=== PATIENT | female | born 1975 | race Caucasian/White ===

== ENCOUNTER 2016-09-19 07:55 | Emergency (ER) | payer SELFPAY ==
--- NOTE | 2016-09-19 11:34 | ED ORDER SUMMARY ---
..... Patient: JAXON RODRIGUEZ OrderSheet [facility] VisitID: [id number] [place] [address] 41y, F Registration Date/Time: 09/19/2016 ORDER SHEET Weight: 56.6 kg (stated) Allergies: Cyclobenzaprine, Reglan GENERAL ORDERS: CBC w Diff Urgent (08:12 09/19/2016 JBoardley R.N. per protocol) (Ack 8:20 LTapper) (8:44 JBoardley R.N.) CMP Urgent (08:09/19/2016 JBoardley R.N. per protocol) (Ack 8:20 LTapper) (8:44 JBoardley R.N.) Rapid Influenza Screen (Nasal Pharyngeal) (nasal) Urgent (08:15 09/19/2016 JBoardley R.N. per protocol) (Ack 8:20 LTapper) (8:20 JBoardley R.N.) Urine Drug Screen Urgent (09:30 09/19/2016 PHutchinson DO) (Ack 9:38 LTapper) (9:44 RKaruga) UA-Culture if indicated Urgent (09:09/19/2016 PHutchinson DO) (Ack 9:38 LTapper) (9:44 RKaruga) Urine Urgent (09:09/19/2016 PHutchinson DO) (Ack 9:38 LTapper) (9:44 RKaruga) Amylase Urgent (09:57 09/19/2016 PHutchinson DO) (Ack 9:59 LTapper) (10:30 JBoardley R.N.) Lipase Urgent (09:57 09/19/2016 PHutchinson DO) (Ack 9:59 LTapper) (10:30 JBoardley R.N.) MEDICATION ORDERS: Phenergan IV 12.5 mg (NOW) (09:58 09/19/2016 PHutchinson DO) (Ack 9:59 JBoardley R.N.) (10:07 JBoardley R.N.) IV FLUIDS: IV NS : initial bolus none -, then 1000 mL/hr for X2 (NOW) (08:11 09/19/2016 JBoardley R.N. per protocol) (Ack 8:12 JBoardley R.N.) (8:20 JBoardley R.N.) Zofran IV 4 mg (NOW) (08:11 09/19/2016 JBoardley R.N. per protocol) (Ack 8:12 JBoardley R.N.) (8:20 JBoardley R.N.) Benadryl IV 25 mg (NOW) (08:35 09/19/2016 Frank ESCOTO) (Ack 8:38 JBoardley R.N.) (8:42 JBoardley R.N.) Haldol IV 4 mg (NOW) (08:35 09/19/2016 Frank ESCOTO) (Ack 8:38 JBoardley R.N.) (8:42 JBoardley R.N.) Zofran IV 4 mg (NOW) (09:58 09/19/2016 [facility]) (Ack 9:59 JBoardley R.N.) (10:07 JBoardley R.N.) Protonix IVP 40mg 40 mg (Mix in NS 10ml over 2min) (09:58 09/19/2016 [facility]) (Ack 9:59 JBoardley R.N.) (10:08 JBoardley R.N.) Dilaudid IV 1 mg (HIGH ALERT MEDICATION, NOW) (10:43 09/19/2016 [facility]) (Ack 10:43 JBoardley R.N.) (10:51 JBoardley R.N.) Benadryl IV 25 mg (NOW) (10:43 09/19/2016 [facility]) (Ack 10:43 JBoardley R.N.) (10:52 JBoardley R.N.) ORDER SHEET NOTES: [Electronically signed by Sanchez Farley R.N. (12:48 09/19/2016)] [Electronically signed by Dharmesh Lamb DO (23:09 09/19/2016)] [Electronically locked/signed by Sanchez Farley R.N. (12:48 09/19/2016)]
--- NOTE | 2016-09-19 11:34 | ED CLINICAL REPORT ---
Clinical Report - Physicians/Mid Levels [facility] [address] [place] [address] 09/19/2016 7:57 Patient: JAXON RODRIGUEZ Time Seen: 08:29 Sep 19 2016. Arrived- By private vehicle. Historian- patient. HISTORY OF PRESENT ILLNESS Chief Complaint: VOMITING and DIARRHEA. This started yesterday and is still present. It was gradual in onset and has been waxing/waning. No recent travel. She has had nausea, vomiting and mild abdominal pain. The pain is described as located in the central area of the abdomen. No diarrhea, black stools, bloody stools, history of possible bad food exposure or known contact with a sick individual. Has not recently been camping or on antibiotics. The illness is described as moderate. Similar symptoms previously: Several times, as bad. Diagnosis: (Cyclic vomiting). Recent medical care: Not recently seen/assessed. REVIEW OF SYSTEMS No fever, difficulty with urination, dark urine, dizziness or cough. No chest pain, difficulty breathing, excessive urination or skin rash. All systems otherwise negative, except as recorded above. PAST HISTORY PCP: Nick Richmond Gastroparesis. Abnormal Test. Abdominal Pain. Vomiting. Chronic Back Pain. Gastroenteritis. Cyclical vomiting syndrome. SURGERIES: EGD. SOCIAL HISTORY Smoker- current status unknown. No alcohol use or drug use. ADDITIONAL NOTES The nursing notes have been reviewed. PHYSICAL EXAM Vital Signs: 09/19/2016 08:05 BP: 137/86. HR: 68. RR: 18. O2 saturation: 100%. Temp: 98.5 F. Pain level now: 7/10. Appearance: Alert. Patient in mild distress. Eyes: Eyes normal inspection. ENT: Pharynx normal. Neck: Normal inspection. CVS: Normal heart rate and rhythm. Heart sounds normal. Pulses normal. Respiratory: No respiratory distress. Breath sounds normal. Abdomen: Soft. Mild tenderness in the periumbilical area. Abnormal bowel sounds: diminished. No rebound tenderness or guarding. Back: Normal inspection. Skin: Normal skin color. No rash. Extremities: Extremities exhibit normal ROM. Neuro: Oriented X 3. LABS, X-RAYS, AND EKG Laboratory Tests: UA-Culture if indicated: (KRYS: 09/19/2016 09:40) ( [facility] 09/19[facility]2016 10:07) Final results Test Result Flag Units (Reference) URINE COLOR YELLOW URINE APPEARANCE CLEAR URINE GLUCOSE NEGATIVE (NEGATIVE) URINE BILIRUBIN NEGATIVE (NEGATIVE) URINE KETONE 1+ (NEGATIVE) URINE SPECIFIC GRAVITY 1.015 (1.010-1.030) URINE PH 8.0 (5.0-8.0) URINE PROTEIN TRACE (NEGATIVE) URINE UROBILINOGEN 0.2 EU/dL (0.2-1.0) URINE NITRITE NEGATIVE (NEGATIVE) URINE BLOOD NEGATIVE (NEGATIVE) URINE LEUK ESTERASE NEGATIVE (NEGATIVE) URINE RBC 0-1 rbc/hpf (0-1) URINE WBC 0-1 wbc/hpf (0-1) URINE EPITHELIAL CELLS 1-3 EPI/hpf (0-5) URINE BACTERIA NONE SEEN (NONE SEEN) URINE COMMENT CULT NOT INDICATED 1+ MUCOUSURINE CULTURES ARE SET-UP BASED ON THE FOLLOWING CRITERIA:POSITIVE NITRITEPOSITIVE LEUKOCYTE ESTERASEGREATER THAN 10 WHITE BLOOD CELLSMODERATE (2+) OR GREATER BACTERIA Urine: (KRYS: 09/19/2016 09:40) ( [facility] [place] 09/19/2016 09:55) Final results Test Result Flag Units (Reference) URINE NEGATIVE CBC w Diff: (KRYS: 09/19/2016 08:44) ( [facility] 09/19/2016 08:56) Final results Test Result Flag Units (Reference) WHITE BLOOD COUNT 11.8 H K/uL (4.5-11.5) RED BLOOD COUNT 4.35 M/uL (4.00-5.20) HEMOGLOBIN 13.5 gm/dL (12.0-16.0) HEMATOCRIT 40.9 % (36.0-46.0) MEAN CELL VOLUME 94 fL (80-100) MEAN CORPUSCULAR HGB 31 pg (26-34) MEAN CORPUSCULAR HGB CONC 33 g/dL (31-37) RED CELL DISTRIBUTION WIDTH 13.1 % (11.6-14.8) PLATELET COUNT 272 K/uL (150-400) NEUTROPHIL % 92.6 H % (50-75) LYMPH % 6.6 L % (25-40) MONO % 0.7 L % (3-14) EOSINOPHIL % 0 % (0-4) BASOPHIL % 0.1 % (0-2) Lipase: (KRYS: 09/19/2016 08:44) ( [facility] 09/19/2016 10:10) Final results Test Result Flag Units (Reference) LIPASE 60 L U/L (73-393) AMYLASE 43 U/L (25-115) Urine Drug Screen: (KRYS: 09/19/2016 09:40) ( [facility] 09/19/2016 10:09) Final results Test Result Flag Units (Reference) AMPHETAMINE/METHAMPHETAMINE NEGATIVE (NEGATIVE) BARBITURATE NEGATIVE (NEGATIVE) BENZODIAZEPINE NEGATIVE (NEGATIVE) CANNABINOID NEGATIVE (NEGATIVE) COCAINE NEGATIVE (NEGATIVE) ECSTASY NEGATIVE (NEGATIVE) METHADONE NEGATIVE (NEGATIVE) OPIATE NEGATIVE (NEGATIVE) The urine drug screen is a qualitative screening test fordrug overdose and abuse. All screen results should beconsidered as presumptive.Drugs screened for are as follows:BenzodiazepinesCocaineAmphetamines/MetamphetaminesTHC (Tetrahydrocannabinol)OpiatesBarbituratesEcstasyMethadonePositive results are unconfirmed. For confirmation, notifythe lab for the specimen to be sent to the reference lab.All confirmations must be performed by a differentmethodology.The ingestion of natural herbal and plant productscontaining Ephedra/Ephedra metabolites can produce in urineone or more substances capable of cross reacting withamphetamine/methamphetamine immunoassays. These testsprovide a preliminary result only. A more specificalternative chemical method must be used to obtain aconfirmed analytical result. CMP: (KRYS: 09/19/2016 08:44) ( [facility] 09/19/2016 09:17) Final results Test Result Flag Units (Reference) GLUCOSE 158 H mg/dL (70-110) BUN 4 L mg/dL (7-18) CREATININE 0.0 L mg/dL (0.6-1.3) Estimated GFR >60 mL/min Estimated GFR- >60 mL/min Note: Persistent reduction over 3 months in eGFR<60 mL/min/1.73 m2 defines CKD. Patients with eGFR values>=60 mL/min/1.73 m2 may also have CKD if evidence ofpersistent proteinuria. Additional information may be foundat www.[email or web address].org. SODIUM 138 mmol/L (136-145) POTASSIUM 3.6 mmol/L (3.5-5.1) CHLORIDE 101 mmol/L (98-107) CARBON DIOXIDE 25 mmol/L (21-32) CALCIUM 8.4 L mg/dL (8.5-10.1) TOTAL PROTEIN 7.7 g/dL (6.4-8.2) ALBUMIN 3.9 g/dL (3.3-5.0) BILIRUBIN, TOTAL 0.3 mg/dL (0.0-1.0) ALKALINE PHOSPHATASE 81 U/L (46-116) AST (SGOT) 14 L U/L (15-37) ALT (SGPT) 22 U/L (12-78) Rapid Influenza Screen: (KRYS: 09/19/2016 08:20) ( [facility] 09/19/2016 08:50) Final results SPECIMEN DESCRIPTION: NASAL Test Result Flag Units (Reference) RAPID INFLUENZA SCREEN DATE: 09/19/16 INFLUENZA A: NEGATIVE SCREEN FOR INFLUENZA A INFLUENZA B: NEGATIVE SCREEN FOR INFLUENZA B . Pulse Oximetry: 09/19/2016 08:05 O2 saturation: 100%. (FIO2 - room air). Interpretation: normal. PROGRESS AND PROCEDURES Course of Care: IV 2 L NS Benadryl 25 mg + 25 mg IV Haldol 4 mg IV Zofran 4 mg + 4mg IV Phenergan 12.5 mg IV Dilaudid 1 mg IV 09:00. Care transferred from Dr Mcclendon to myself secondary to change of shift Mild leukocytosis c/w demargination/ stress reaction from vomiting We were able to make an appt for her with her pcp for 2 days, but she refused this appt. We then rescheduled with a new provider for Alon Patient is stable. Physical exam findings are improved. Symptoms much better. Patient/family counseled. Old ED records reviewed. CLINICAL IMPRESSION Intractable vomiting with nausea (with history of cyclic vomiting syndrome). Acute generalized and epigastric abdominal pain of undetermined cause. INSTRUCTIONS Do not work for three days. Drink plenty of fluids. No alcohol until released. Avoid alcohol and NSAIDS. Examples of NSAIDS include aspirin, ibuprofen (Advil) and naproxen (Aleve). Avoid fatty, fried/greasy, lactose-containing (such as milk, cheese and ice cream), salty and spicy foods. Drink plenty of fluids. Do not smoke. Seek medical help to quit smoking. Warnings: Further evaluation is necessary in order to recheck abnormal lab, obtain test results, conduct further tests and assess the possibility of serious illness. It is very important to follow up with a physician. SEDATIVE MEDICATION: You were given sedative medication during your visit. Do not drive or operate dangerous machinery. CONTROLLED SUBSTANCE WARNINGS. GENERAL WARNINGS: Return or contact your physician immediately if your condition worsens or changes unexpectedly, if not improving as expected, or if other problems arise. Your Current Medications: CONTINUE TAKING THE FOLLOWING MEDICATIONS: Amitriptyline HCl Oral : 125 mg at bedtime. Prescription Medications: Hydrocodone/APAP 5mg / 325mg: take 1-2 orally every 8 hours as needed for pain. Dispense fifteen (15). No refill. Zofran (orally disintegrating tablets) 4 mg: take 1-2 orally every 8 hours as needed for nausea and vomiting. Dispense fifteen (15). No refill. Substitution is permissible. Prevacid 30 mg capsules: Take 1 capsule orally once daily. Dispense fifteen (15). No refills. Substitution is permissible. Phenergan suppositories 25 mg: Insert 1 rectally every 4 to 6 hours as needed for nausea or vomiting. Dispense ten (10). No refills. Substitution is permissible. OTC Medications: Take acetaminophen (Tylenol, Datril, etc.) according to label instructions. Available over the counter. Follow-up: Follow up with your doctor Haven at the [facility] - an appointment has been made for you for 9:40 am Monday as scheduled. (Electronically signed by Dharmesh Lamb DO 09/19/2016 23:09)
--- NOTE | 2016-09-19 11:34 | ED NURSING NOTES ---
Clinical Report - Nurses [facility] [address] [place] [address] 09/19/2016 7:57 Patient: JAXON RODRIGUEZ TRIAGE Triage time 08:05. Acuity: LEVEL 3. Chief Complaint: ABDOMINAL PAIN, NAUSEA and VOMITING. 08:06 09/19/16. 08:06 09/19/16. Alert. --08:09 Sanchez Farley R.N. 08:05 09/19/16. BP: 137/86. HR: 68. RR: 18. O2 saturation: 100% on room air. Temp: 98.5 F (oral). Pain level now: 02/13. --08:09 Sanchez Farley R.N. Weight: 56.6 kg stated. Height/Length: 64 inches Per Patient. BMI: 21.4. --08:05 Sanchez Farley R.N. Medications Amitriptyline HCl Oral 125 mg, at bedtime. --08:07 Sanchez Farley R.N. Medication/allergy information source: the patient. --08:09 Sanchez Farley R.N. Allergies Cyclobenzaprine. Reglan. --08:08 Sanchez Farley R.N. History Arrived by private vehicle. Historian: patient. Accompanied by friend. Primary physician ([facility] [place]). 08:06 09/19/16. This started yesterday. 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 PAST MEDICAL HX: Last normal menstrual period- Ended "a few days ago". Immunizations not up to date. SOCIAL HX: Current every day light tobacco smoker (cigarette)- less than 1/2 a pack per day. No alcohol use or drug use. No recent travel. She has had contact with a sick individual. ABUSE ASSESSMENT: No report of abuse. FALL RISK ASSESSMENT: Fall risk assessment completed. No fall risk identified. NUTRITIONAL RISK ASSESSMENT: The nutritional risk assessment revealed no deficiencies. FUNCTIONAL ASSESSMENT: Functional assessment: no impairments noted. LEARNING NEEDS ASSESSMENT: The learning needs assessment revealed no barriers. SKIN INTEGRITY ASSESSMENT: Skin integrity risk assessment completed. No skin integrity risk identified. --08:09 Sanchez Farley R.N. PROBLEMS: Gastroparesis. Abnormal Test. Abdominal Pain. Vomiting. Chronic Back Pain. Gastroenteritis. Cyclical vomiting syndrome. --08:08 Sanchez Farley R.N. ADDITIONAL SURGERIES: EGD. --08:08 Sanchez Farley R.N. Assessment 08:06 09/19/16. --08:09 Sanchez Farley R.N. Interventions 08:09/19/16. 08:09/19/16. ID and allergy band on patient. To treatment room. --08:09 Sanchez Farley R.N. PHYSICAL ASSESSMENT 08:09/19/16. Ambulatory to room. GENERAL / NEURO / PSYCH: Appears in pain. RESPIRATORY: Respirations not labored. CVS: Capillary refill less than 2 seconds. GI / : Last BM was Loose was yesterday. ( Last time emesis: 30 min ago). SKIN: Skin is warm and dry. --08:10 Sanchez Farley R.N. NURSING PROGRESS NOTES 08:09/19/16. The plan of care for this patient has been created. Patient gowned. Head of bed elevated. Reassurance given. Two patient identifiers checked. Call light placed in reach. Side rails up x 2. Bed placed in lowest position. Brakes of bed on. Brakes of chair on. --08:10 Sanchez Farley R.N. 08:10 09/19/16. Patient ready for evaluation- chart flagged and notification provided. --08:10 Sanchez Farley R.N. 08:15 09/19/2016 Site #1 started via IV in the right hand with an 20g angiocath; one attempt. Saline lock flushed with 10 mL saline (Sluggish blood draw, lab to draw labs Started by Christie LAINEZ). --08:20 Sanchez Farley R.N. 08:20 09/19/2016 Started bag #1 1000 mL IV Fluids IV NS (Saline); at 1000 mL/hr over 1 hour(s) via site #1. Allergies verified and confirmed 5 rights. IV patency established. IV site checked: no pain, redness, or swelling. IV flushed thoroughly pre- and post-medication administration. Completed per protocol. --08:20 Sanchez Farley R.N. 08:20 09/19/2016 Zofran (Ondansetron HCl) IVP 4 mg given over 2 minute(s) via site #1. Allergies verified and confirmed 5 rights. IV patency established. IV site checked: no pain, redness, or swelling. IV flushed thoroughly pre- and post-medication administration. IVP given by RN. --08:20 Sanchez Farley R.N. 08:23 09/19/16. ( Sluggish blood draw with IV start, tech at bedside redrawing blood). --08:23 Sanchez Farley R.N. 08:23 09/19/16. Patient ID band checked for patient name and birthdate: patient confirmed. Flu swab obtained by RN via nasal swab. Labeled in the presence of the patient and sent to lab. --08:24 Sanchez Farley R.N. 08:42 09/19/2016 Benadryl (DiphenhydrAMINE HCl) IVP 25 mg given over 3 minute(s) via site #1. Allergies verified, confirmed 5 rights and sedative warning given to the patient. IV patency established. IV site checked: no pain, redness, or swelling. IV flushed thoroughly pre- and post-medication administration. IVP given by RN. --08:42 Sanchez Farley R.N. 08:42 09/19/2016 HALDOL (Haloperidol Lactate) IVP 4 mg given over 2 minute(s) via site #1. 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 IV patency established. IV site checked: no pain, redness, or swelling. IV flushed thoroughly pre- and post-medication administration. IVP given by RN. --08:42 Sanchez Farley R.N. 08:43 09/19/16. BP: 124/72. HR: 68. RR: 12. O2 saturation: 99% on room air. Pain level now: 10. --08:43 Sanchez Farley R.N. 08:43 09/19/16. --08:43 Sanchez Farley R.N. 08:44 09/19/16. Patient ID band checked for patient name and birthdate: patient confirmed. Blood samples drawn by lab and sent to lab: maite set. --08:44 Sanchez Farley R.N. 08:53 09/19/16. ( Pt is unable to void, ambulated to bathroom, with steady gait, back to bed without difficulty.). --08:53 Sanchez Farley R.N. 08:54 09/19/16. Reassessment after medication administered. She has had no adverse reaction. Overall patient status is the same- she states feels the same. --08:54 Sanchez Farley R.N. 09:12 09/19/16. Reassessment after medication administered. She is resting quietly and sleeping and has had no adverse reaction. --09:12 Sanchez Farley R.N. 09:12 09/19/16. Patient and family informed about reason for wait and about plan of care. --09:12 Sanchez Farley R.N. 09:12 09/19/16. Patient waiting for lab results. --09:12 Sanchez Farley R.N. 09:40. Patient ID band checked for patient name and birthdate: patient confirmed. Instructions provided to collect clean catch urine and patient verbalized understanding. Clean catch urine collected with return of yellow-colored clear urine; odor is normal; sample sent to lab for urinalysis and culture. Specimen labeled in the presence of the patient. --09:46 Stephanie Mills 09:58 09/19/16. Patient and family informed about reason for wait and about plan of care. --09:58 Sanchez Farley R.N. 09:58 09/19/16. ED physician notified about patient's status. --09:58 Sanchez Farley R.N. 09:58 09/19/16. --09:59 Sanchez Farley R.N. 09:58 09/19/16. HR: 70. RR: 18. O2 saturation: 99% on room air. Temp: 98 F (oral). Pain level now: 10. --09:59 Sanchez Farley R.N. 10:05 09/19/2016 Started bag #2 1000 mL IV Fluids IV NS (Saline); at 1000 mL/hr over 1 hour(s) via site #1. Allergies verified and confirmed 5 rights. IV patency established. IV site checked: no pain, redness, or swelling. IV flushed thoroughly pre- and post-medication administration. Completed per protocol. --10:30 Sanchez Farley R.N. 10:07 09/19/2016 Zofran (Ondansetron HCl) IVP 4 mg given over 2 minute(s) via site #1. Allergies verified and confirmed 5 rights. IV patency established. IV site checked: no pain, redness, or swelling. IV flushed thoroughly pre- and post-medication administration. IVP given by RN. --10:07 Sanchez Farley R.N. 10:07 09/19/2016 PHENERGAN (Promethazine HCl) IVP 12.5 mg given over 3 minute(s) via site #1. Allergies verified and confirmed 5 rights. IV patency established. IV site checked: no pain, redness, or swelling. IV flushed thoroughly pre- and post-medication administration. IVP given by RN. --10:07 Sanchez Farley R.N. 10:08 09/19/2016 PROTONIX (Pantoprazole Sodium) IVP 40 mg given over 4 minute(s) via site #1. Allergies verified and confirmed 5 rights. IV patency established. IV site checked: no pain, redness, or swelling. IV flushed thoroughly pre- and post-medication administration. IVP given by RN (mixed in 12 mLs NS). --10:08 Sanchez Farley R.N. 10:15 09/19/2016 IV Fluids IV NS Discontinued: bag #1 infused. Total amount infused: 1000 mL. IV patency established. IV site checked: no pain, redness, or swelling. IV flushed thoroughly. --10:30 Sanchez Farley R.N. 10:51 09/19/2016 Dilaudid (HYDROmorphone HCl PF) IVP 1 mg given over 2 minute(s) via site #1. Allergies verified, confirmed 5 rights and sedative warning given to the patient. IV patency established. IV site checked: no pain, redness, or swelling. IV flushed thoroughly pre- and post-medication administration. IVP given by RN. --10:51 Sanchez Farley R.N. 10:52 09/19/2016 Benadryl (DiphenhydrAMINE HCl) IVP 25 mg given over 2 minute(s) via site #1. Allergies verified, confirmed 5 rights and sedative warning given to the patient. IV patency established. IV site checked: no pain, redness, or swelling. IV flushed thoroughly pre- and post-medication administration. IVP given by RN. --10:52 Sanchez Farley R.N. 11:22 09/19/16. Patient and family informed about reason for wait and about plan of care. --11:22 Sanchez Farley R.N. 11:09/19/16. Patient waiting for disposition. --11:22 Sanchez Farley R.N. 11:09/19/16. Reassessment after medication administered. She is sleeping. --11:22 Sanchez Farley R.N. 11:35 09/19/2016 IV Fluids IV NS Discontinued: bag #2 infused upon discharge. Total amount infused: 1000 mL. IV patency established. IV site checked: no pain, redness, or swelling. IV flushed thoroughly. --11:35 Sanchez Farley R.N. DISPOSITION / DISCHARGE 11:34 09/19/2016 Site #1 removed upon discharge. Catheter intact. --11:34 Sanchez Farley R.N. 11:35 09/19/16. Condition at departure: improved. The goals identified in the patient's plan of care were met. No learning barriers present. Discharge instructions provided and reviewed with the patient. Reviewed warnings. Reviewed medication(s). Treatments reviewed. Patient verbalized understanding. Written instructions provided in [place]. The patient was discharged by the physician. She was discharged home and accompanied by family. She left the Emergency Department ambulatory and via private vehicle. Family member driving. FALL RISK ASSESSMENT: Fall risk assessment completed. No fall risk identified. --11:35 Sanchez Farley R.N. 11:34 09/19/16. BP: 117/62. HR: 72. RR: 14. O2 saturation: 100% on room air. Temp: 98.2 F (oral). --11:35 Sanchez Farley R.N. 11:39 09/19/16. ( Pt with PCP appt on Monday, pt aware). --11:39 Sanchez Farley R.N. 11:39 09/19/16. Departure time: 11:39. --11:39 Sanchez Farley R.N. Locked/Released at 09/19/2016 12:48 by Sanchez Farley R.N.
--- NOTE | 2016-09-19 11:34 | ED ORDER SUMMARY ---
..... Patient: JAXON RODRIGUEZ OrderSheet [facility] VisitID: [id number] [place] [address] 41y, F Registration Date/Time: 09/19/2016 ORDER SHEET Weight: 56.6 kg (stated) Allergies: Cyclobenzaprine, Reglan GENERAL ORDERS: CBC w Diff Urgent (08:12 09/19/2016 JBoardley R.N. per protocol) (Ack 8:20 LTapper) (8:44 JBoardley R.N.) CMP Urgent (08:09/19/2016 JBoardley R.N. per protocol) (Ack 8:20 LTapper) (8:44 JBoardley R.N.) Rapid Influenza Screen (Nasal Pharyngeal) (nasal) Urgent (08:15 09/19/2016 JBoardley R.N. per protocol) (Ack 8:20 LTapper) (8:20 JBoardley R.N.) Urine Drug Screen Urgent (09:30 09/19/2016 PHutchinson DO) (Ack 9:38 LTapper) (9:44 RKaruga) UA-Culture if indicated Urgent (09:09/19/2016 PHutchinson DO) (Ack 9:38 LTapper) (9:44 RKaruga) Urine Urgent (09:09/19/2016 PHutchinson DO) (Ack 9:38 LTapper) (9:44 RKaruga) Amylase Urgent (09:57 09/19/2016 PHutchinson DO) (Ack 9:59 LTapper) (10:30 JBoardley R.N.) Lipase Urgent (09:57 09/19/2016 PHutchinson DO) (Ack 9:59 LTapper) (10:30 JBoardley R.N.) MEDICATION ORDERS: Phenergan IV 12.5 mg (NOW) (09:58 09/19/2016 PHutchinson DO) (Ack 9:59 JBoardley R.N.) (10:07 JBoardley R.N.) IV FLUIDS: IV NS : initial bolus none -, then 1000 mL/hr for X2 (NOW) (08:11 09/19/2016 JBoardley R.N. per protocol) (Ack 8:12 JBoardley R.N.) (8:20 JBoardley R.N.) Zofran IV 4 mg (NOW) (08:11 09/19/2016 JBoardley R.N. per protocol) (Ack 8:12 JBoardley R.N.) (8:20 JBoardley R.N.) Benadryl IV 25 mg (NOW) (08:35 09/19/2016 Frank ESCOTO) (Ack 8:38 JBoardley R.N.) (8:42 JBoardley R.N.) Haldol IV 4 mg (NOW) (08:35 09/19/2016 Frank ESCOTO) (Ack 8:38 JBoardley R.N.) (8:42 JBoardley R.N.) Zofran IV 4 mg (NOW) (09:58 09/19/2016 [facility]) (Ack 9:59 JBoardley R.N.) (10:07 JBoardley R.N.) Protonix IVP 40mg 40 mg (Mix in NS 10ml over 2min) (09:58 09/19/2016 [facility]) (Ack 9:59 JBoardley R.N.) (10:08 JBoardley R.N.) Dilaudid IV 1 mg (HIGH ALERT MEDICATION, NOW) (10:43 09/19/2016 [facility]) (Ack 10:43 JBoardley R.N.) (10:51 JBoardley R.N.) Benadryl IV 25 mg (NOW) (10:43 09/19/2016 [facility]) (Ack 10:43 JBoardley R.N.) (10:52 JBoardley R.N.) ORDER SHEET NOTES: [Electronically signed by Sanchez Farley R.N. (12:48 09/19/2016)] [Electronically signed by Dharmesh Lamb DO (23:09 09/19/2016)] [Electronically locked/signed by Sanchez Farley R.N. (12:48 09/19/2016)]
--- NOTE | 2016-09-19 23:09 | ED MED RECONCILIATION SUMMARY ---
Patient: JAXON RODRIGUEZ Medication Reconciliation Report [facility] VisitID: [id number] [address] [place] [address] 41y, F Registration Date/Time: 09/19/2016 Weight: 56.6 kg Height/Length: 64 in. BMI: 21.4 ALLERGIES: Cyclobenzaprine, Reglan The patient's Home Medications are listed below: CONTINUE TAKING THE FOLLOWING MEDICATIONS: Amitriptyline HCl Oral 125 mg, at bedtime The source(s) of the original Home Medication information: patient The following Medications were given to the patient in the Emergency Department: IV NS IV Fluids bolus 0, then 1000 mL/hr, administered: 09/19/2016 8:20:00 AM Zofran [IVP] IVP 4 mg, administered: 09/19/2016 8:20:00 AM Benadryl [IVP] IVP 25 mg, administered: 09/19/2016 8:42:00 AM HALDOL [IVP] IVP 4 mg, administered: 09/19/2016 8:42:00 AM Zofran [IVP] IVP 4 mg, administered: 09/19/2016 10:07:00 AM PHENERGAN [IVP] IVP 12.5 mg, administered: 09/19/2016 10:07:00 AM PROTONIX [IVP] IVP 40 mg, administered: 09/19/2016 10:08:00 AM IV NS IV Fluids bolus 0, then 1000 mL/hr, administered: 09/19/2016 10:05:00 AM Dilaudid [IVP] IVP 1 mg, administered: 09/19/2016 10:51:00 AM Benadryl [IVP] IVP 25 mg, administered: 09/19/2016 10:52:00 AM The following Medications were prescribed to the patient: Take acetaminophen (Tylenol, Datril, etc.) according to label instructions. Available over the counter. -- Dharmesh Lamb DO Hydrocodone/APAP 5mg / 325mg: take 1-2 orally every 8 hours as needed for pain. Dispense fifteen (15). No refill. -- Dharmesh Lamb DO Zofran (orally disintegrating tablets) 4 mg: take 1-2 orally every 8 hours as needed for nausea and vomiting. Dispense fifteen (15). No refill. Substitution is permissible. -- Dharmesh Lamb DO Prevacid 30 mg capsules: Take 1 capsule orally once daily. Dispense fifteen (15). No refills. Substitution is permissible. -- Dharmesh Lamb DO Phenergan suppositories 25 mg: Insert 1 rectally every 4 to 6 hours as needed for nausea or vomiting. Dispense ten (10). No refills. Substitution is permissible. -- Dharmesh Lamb DO
--- NOTE | 2016-09-19 23:09 | ED DISCHARGE INSTRUCTIONS ---
Patient: JAOXN RODRIGUEZ General Instructions [facility] VisitID: [id number] [place] [address] 41y, F Registration Date/Time: 09/19/2016 Intractable vomiting with nausea (with history of cyclic vomiting syndrome). Acute generalized and epigastric abdominal pain of undetermined cause. INSTRUCTIONS Do not work for three days. Drink plenty of fluids. No alcohol until released. Avoid alcohol and NSAIDS. Examples of NSAIDS include aspirin, ibuprofen (Advil) and naproxen (Aleve). Avoid fatty, fried/greasy, lactose-containing (such as milk, cheese and ice cream), salty and spicy foods. Drink plenty of fluids. Do not smoke. Seek medical help to quit smoking. Warnings: Further evaluation is necessary in order to recheck abnormal lab, obtain test results, conduct further tests and assess the possibility of serious illness. It is very important to follow up with a physician. SEDATIVE MEDICATION: You were given sedative medication during your visit. Do not drive or operate dangerous machinery. CONTROLLED SUBSTANCE WARNINGS. GENERAL WARNINGS: Return or contact your physician immediately if your condition worsens or changes unexpectedly, if not improving as expected, or if other problems arise. Your Current Medications: CONTINUE TAKING THE FOLLOWING MEDICATIONS: Amitriptyline HCl Oral : 125 mg at bedtime. Prescription Medications: Hydrocodone/APAP 5mg / 325mg: take 1-2 orally every 8 hours as needed for pain. Dispense fifteen (15). No refill. Zofran (orally disintegrating tablets) 4 mg: take 1-2 orally every 8 hours as needed for nausea and vomiting. Dispense fifteen (15). No refill. Substitution is permissible. Prevacid 30 mg capsules: Take 1 capsule orally once daily. Dispense fifteen (15). No refills. Substitution is permissible. Phenergan suppositories 25 mg: Insert 1 rectally every 4 to 6 hours as needed for nausea or vomiting. Dispense ten (10). No refills. Substitution is permissible. OTC Medications: Take acetaminophen (Tylenol, Datril, etc.) according to label instructions. Available over the counter. Follow-up: Follow up with your doctor [facility] at the [facility] - an appointment has been made for you for 9:40 am Monday as scheduled. ADDITIONAL INFORMATION Vomiting [6Yr-Adult] Vomiting is a common symptom that may be due to different causes. These include gastroenteritis ("stomach flu"), food poisoning and gastritis. There are other more serious causes of vomiting which may be hard to diagnose early in the illness. Therefore, it is important to watch for the warning signs listed below. The main danger from repeated vomiting is dehydration. This is due to excess loss of water and minerals from the body. When this occurs, body fluids must be replaced. Home Care: If symptoms are severe, rest at home for the next 24 hours. You may use acetaminophen (Tylenol) or ibuprofen (Motrin, Advil) to control fever, unless another medicine was prescribed. [NOTE : If you have chronic liver or kidney disease or ever had a stomach ulcer or GI bleeding, talk with your doctor before using these medicines.] (Aspirin should never be used in anyone under 18 years of age who is ill with a fever. It may cause severe liver damage.) Avoid tobacco and alcohol use, which may worsen your symptoms. If medicines for vomiting were prescribed, take as directed. Once vomiting stops, then follow these guidelines: During The First 12-24 Hours follow the diet below: FRUIT JUICES: Apple, grape juice, clear fruit drinks, and electrolyte replacement drinks. BEVERAGES: Soft drinks without caffeine; mineral water (plain or flavored), decaffeinated tea and coffee. SOUPS: Clear broth, consomm and bouillon DESSERTS: Plain gelatin, popsicles and fruit juice bars. As you feel better, you may add 6-8 ounces of yogurt per day. During The Next 24 Hours you may add the following to the above: Hot cereal, plain toast, bread, rolls, crackers Plain noodles, rice, mashed potatoes, chicken noodle or rice soup Unsweetened canned fruit (avoid pineapple), bananas Limit caffeine and chocolate. No spices or seasonings except salt. During The Next 24 Hours Gradually resume a normal diet, as you feel better and your symptoms lessen. Follow Up with your doctor as advised if you are not improving over the next 2-3 days. Get Prompt Medical Attention if any of the following occur: Constant right-sided lower abdominal pain or increasing general abdominal pain Continued vomiting (unable to keep liquids down) for 24 hours Frequent diarrhea (more than 5 times a day); blood (red or black color) or mucus in diarrhea Reduced urine output or extreme thirst Weakness, dizziness or fainting Unusually drowsy or confused Fever of 100.4F (38C) oral or higher, not better with fever medication Yellow color of the eyes or skin Abdominal Pain, Unknown Cause (Female) The exact cause of your abdominal (stomach) pain is not certain. This does not mean that this is something to worry about, or the right tests were not done. Everyone likes to know the exact cause of the problem, but sometimes with abdominal pain, there is no clear-cut cause, and this could be a good thing. The good news is that your symptoms can be treated, and you will feel better. Your condition does not seem serious now; however, sometimes the signs of a serious problem may take more time to appear. For this reason,it is important for you to watch for any new symptoms, problems,or worsening of your condition. Over the next few days, the abdominal pain may come and go, or be continuous. Other common symptoms can include nausea and vomiting. Sometimes it can be difficult to tell if you feel nauseous, you may just feel bad and not associate that feeling with nausea. Constipation, diarrhea, and a fever may go along with the pain. The pain may continue even if treated correctly over the following days. Depending on how things go, sometimes the cause can become clear and may require further or different treatment. Additional evaluations, medications, or tests may be needed. Home care Your health care provider may prescribe medications for pain, symptoms, or an infection. Follow the health care provider's instructions for taking these medications. General care Rest until your next exam. No strenuous activities. Try to find positions that ease discomfort. A small pillow placed on the abdomen may help relieve pain. Something warm on your abdomen (such as a heating pad) may help, but be careful not to burn yourself. Diet Do not force yourself to eat, especially if having cramps, vomiting, or diarrhea. Water is important so you do not get dehydrated. Soup may also be good. Sports drinks may also help, especially if they are not too acidic. Make sure you don't drink sugary drinks as this can make things worse. Take liquids in small amounts. Do not guzzle them. Caffeine sometimes makes the pain and cramping worse. Avoid dairy products if you have vomiting or diarrhea. Don't eat large amounts at a time. Wait a few minutes between bites. Eat a diet low in fiber (called a low-residue diet). Foods allowed include refined breads, white rice, fruit and vegetable juices without pulp, tender meats. These foods will pass more easily through the intestine. Avoid whole-grain foods, whole fruits and vegetables, meats, seeds and nuts, fried or fatty foods, dairy, alcohol and spicy foods until your symptoms go away. Follow-up care Follow up with your health care provider as instructed, or if your pain does not begin to improve in the next 24 hours. When to seek medical care Seek prompt medical care if any of the following occur: Pain gets worse or moves to the right lower abdomen New or worsening vomiting or diarrhea Swelling of the abdomen Unable to pass stool for more than three days Fever of 100.4F (38C) or higher, or as directed by your healthcare provider. Blood in vomit or bowel movements (dark red or black color) Jaundice (yellow color of eyes and skin) Weakness, dizziness Chest, arm, back, neck or jaw pain Unexpected vaginal bleeding or missed period Call 911 Call emergency services if any of the following occur: Trouble breathing Confusion Fainting or loss of consciousness Rapid heart rate Seizure [place] Diet A bland diet is used for patients with an upset stomach. It consists of foods that are mild and easy to digest. It is better to eat small frequent meals rather than three large meals a day. BEVERAGES OK: Fruit juices, non-caffeinated teas and coffee, non-carbonated bullard AVOID: Carbonated beverage, caffeinated tea and coffee, all alcoholic beverages BREAD OK: Refined white, wheat or rye bread, marc or soda crackers, [place] toast, plain rolls, bagels AVOID: Whole-grain bread CEREAL OK: Refined cereals: cooked or ready to eat AVOID: Whole grain cereals and granola, or those containing bran, seeds or nuts DESSERTS OK: Peanut butter and all others except those to "avoid" AVOID: Chocolate, cocoa, coconut, popcorn, nuts, seeds, jam, marmalade FRUITS OK: Canned, cooked, frozen or fresh fruits without seeds or tough skin AVOID: Olives, skin and seeds of fruit MEATS OK: All fresh or preserved meat, fish and fowl AVOID: Any that are prepared with those spices to "avoid" CHEESE & EGGS OK: Eggs, cottage cheese, cream cheese, other cheeses AVOID: All cheeses made with those spices to "avoid" POTATOES & PASTA OK: Potato, rice, macaroni, noodles, spaghetti AVOID: None SOUPS OK: All soups without heavy seasoning AVOID: Soups made with those spices to "avoid" VEGETABLES OK: Canned, cooked, fresh or frozen mildly flavored vegetables without seeds, skins or coarse fiber AVOID: Vegetables prepared with those spices to "avoid"; skin and seeds of vegetables and those with coarse fiber SPICES OK: Salt, lemon and [place] juice, vinegar, all extracts, heather, cinnamon, thyme, mace, allspice, paprika AVOID: Tye powder, cloves, pepper, seed spices, garlic, gravy pickles, highly seasoned salad dressings How To Quit Smoking Smoking is one of the hardest habits to break. About half of all those who have ever smoked have been able to quit, and most of those (about 70%) who still smoke want to quit. Here are some of the best ways to stop smoking. Keep Trying: It takes most smokers about 8 tries before they are finally able to fully quit. So, the more often you try and fail, the better your chance of quitting the next time! So, don't give up! Go Cold [place]: Most ex-smokers quit cold turkey. Trying to cut back gradually doesn't seem to work as well, perhaps because it continues the smoking habit. Also, it is possible to fool yourself by inhaling more while smoking fewer cigarettes. This results in the same amount of nicotine in your body! Get Support: Support programs can make an important difference, especially for the heavy smoker. These groups offer lectures, methods to change your behavior and peer support. Call the free national Quitline for more information. 874-ZYFW-UFN (440-574-6962). Low-cost or free programs are offered by many hospitals, local chapters of the [place] [employer] (673-883-8123) and the [place] [employer] (588-465-7643). Support at home is important too. Non-smokers can help by offering praise and encouragement. If the smoker fails to quit, encourage them to try again! Jthx-Yqd-Ozsazks Medicines: For those who can't quit on their own, Nicotine Replacement Therapy (NRT) may make quitting much easier. Certain aids such as the nicotine patch, gum and lozenge are available without a prescription. However, it is best to use these under the guidance of your doctor. The skin patch provides a steady supply of nicotine to the body. Nicotine gum and lozenge gives temporary bursts of low levels of nicotine. Both methods take the edge off the craving for cigarettes. WARNING: If you feel symptoms of nicotine overdose, such as nausea, vomiting, dizziness, weakness, or fast heartbeat, stop using these and see your doctor. Prescription Medicines: After evaluating your smoking patterns and prior attempts at quitting, your doctor may offer a prescription medicine such as bupropion (Zyban, Wellbutrin), varenicline (Chantix, Champix), a niocotine inhaler or nasal spray. Each has its unique advantage and side effects which your doctor can review with you. Health Benefits Of Quitting: The benefits of quitting start right away and keep improving the longer you go without smokin minutes: blood pressure and pulse return to normal 8 hours: oxygen levels return to normal 2 days: ability to smell and taste begins to improve as damaged nerves start to regrow 2-3 weeks: circulation and lung function improves 1-9 months: decreased cough, congestion and shortness of breath; less tired 1 year: risk of heart attack decreases by half 5 years: risk of lung cancer decreases by half; risk of stroke becomes the same as a non-smoker For information about how to quit smoking, visit the following links: National Cancer [place] , Clearing the Air, Quit Smoking Today - an online booklet. http://www.smokefree.gov/pubs/clearing_the_air.pdf Smokefree.gov http://smokefree.gov/ QuitNet http://www.quitnet.com/ Hydrocodone Bitartrate, Acetaminophen Oral tablet What is this medicine? ACETAMINOPHEN; HYDROCODONE (a set a COREEN brian fen; justin droe KOE done) is a pain reliever. It is used to treat mild to moderate pain. How should I use this medicine? Take this medicine by mouth. Swallow it with a full glass of water. Follow the directions on the prescription label. If the medicine upsets your stomach, take the medicine with food or milk. Do not take more than you are told to take. Talk to your guest services lead regarding the use of this medicine in children. This medicine is not approved for use in children. What side effects may I notice from receiving this medicine? Side effects that you should report to your doctor or health long term care social worker as soon as possible: allergic reactions like skin rash, itching or hives, swelling of the face, lips, or tongue breathing problems confusion feeling faint or lightheaded, falls stomach pain yellowing of the eyes or skin Side effects that usually do not require medical attention (report to your doctor or health long term care social worker if they continue or are bothersome): nausea, vomiting stomach upset What may interact with this medicine? alcohol antihistamines isoniazid medicines for depression, anxiety, or psychotic disturbances medicines for sleep muscle relaxants naltrexone narcotic medicines (opiates) for pain phenobarbital ritonavir tramadol What if I miss a dose? If you miss a dose, take it as soon as you can. If it is almost time for your next dose, take only that dose. Do not take double or extra doses. Where should I keep my medicine? Keep out of the reach of children. This medicine can be abused. Keep your medicine in a safe place to protect it from theft. Do not share this medicine with anyone. Selling or giving away this medicine is dangerous and against the law. Store at room temperature between 15 and 30 degrees C (59 and 86 degrees F). Protect from light. Keep container tightly closed. Throw away any unused medicine after the expiration date. Discard unused medicine and used packaging carefully. Pets and children can be harmed if they find used or lost packages. What should I tell my health care provider before I take this medicine? They need to know if you have any of these conditions: brain tumor Crohn's disease, inflammatory bowel disease, or ulcerative colitis drink more than 3 alcohol-containing drinks per day drug abuse or addiction head injury heart or circulation problems kidney disease or problems going to the bathroom liver disease lung disease, asthma, or breathing problems an unusual or allergic reaction to acetaminophen, hydrocodone, other opioid analgesics, other medicines, foods, dyes, or preservatives or trying to get breast-feeding What should I watch for while using this medicine? Tell your doctor or health long term care social worker if your pain does not go away, if it gets worse, or if you have new or a different type of pain. You may develop tolerance to the medicine. Tolerance means that you will need a higher dose of the medicine for pain relief. Tolerance is normal and is expected if you take the medicine for a long time. Do not suddenly stop taking your medicine because you may develop a severe reaction. Your body becomes used to the medicine. This does NOT mean you are addicted. Addiction is a behavior related to getting and using a drug for a non-medical reason. If you have pain, you have a medical reason to take pain medicine. Your doctor will tell you how much medicine to take. If your doctor wants you to stop the medicine, the dose will be slowly lowered over time to avoid any side effects. You may get drowsy or dizzy when you first start taking the medicine or change doses. Do not drive, use machinery, or do anything that may be dangerous until you know how the medicine affects you. Stand or sit up slowly. There are different types of narcotic medicines (opiates) for pain. If you take more than one type at the same time, you may have more side effects. Give your health care provider a list of all medicines you use. Your doctor will tell you how much medicine to take. Do not take more medicine than directed. Call emergency for help if you have problems breathing. The medicine will cause constipation. Try to have a bowel movement at least every 2 to 3 days. If you do not have a bowel movement for 3 days, call your doctor or health long term care social worker. Too much acetaminophen can be very dangerous. Do not take Tylenol (acetaminophen) or medicines that contain acetaminophen with this medicine. Many non-prescription medicines contain acetaminophen. Always read the labels carefully. Ondansetron Oral disintegrating tablet What is this medicine? ONDANSETRON (on MARSHALL se lui) is used to treat nausea and vomiting caused by chemotherapy. It is also used to prevent or treat nausea and vomiting after surgery. How should I use this medicine? These tablets are made to dissolve in the mouth. Do not try to push the tablet through the foil backing. With dry hands, peel away the foil backing and gently remove the tablet. Place the tablet in the mouth and allow it to dissolve, then swallow. While you may take these tablets with water, it is not necessary to do so. Talk to your guest services lead regarding the use of this medicine in children. Special care may be needed. What side effects may I notice from receiving this medicine? Side effects that you should report to your doctor or health long term care social worker as soon as possible: allergic reactions like skin rash, itching or hives, swelling of the face, lips, or tongue breathing problems dizziness fast or irregular heartbeat feeling faint or lightheaded, falls fever and chills swelling of the hands and feet tightness in the chest Side effects that usually do not require medical attention (report to your doctor or health long term care social worker if they continue or are bothersome): constipation or diarrhea headache What may interact with this medicine? Do not take this medicine with any of the following medications: -apomorphine -cisapride -dofetilide -dronedarone -pimozide -thioridazine -ziprasidone This medicine may also interact with the following medications: -carbamazepine -phenytoin -rifampicin -tramadol -other medicines that prolong the QT interval (cause an abnormal heart rhythm) What if I miss a dose? If you miss a dose, take it as soon as you can. If it is almost time for your next dose, take only that dose. Do not take double or extra doses. Where should I keep my medicine? Keep out of the reach of children. Store between 2 and 30 degrees C (36 and 86 degrees F). Throw away any unused medicine after the expiration date. What should I tell my health care provider before I take this medicine? They need to know if you have any of these conditions: heart disease history of irregular heartbeat liver disease low levels of magnesium or potassium in the blood an unusual or allergic reaction to ondansetron, granisetron, other medicines, foods, dyes, or preservatives or trying to get breast-feeding What should I watch for while using this medicine? Check with your doctor or health long term care social worker as soon as you can if you have any sign of an allergic reaction. Lansoprazole Oral capsule, gastro-resistant sprinkles What is this medicine? LANSOPRAZOLE (claude MARY pra zole) prevents the production of acid in the stomach. It is used to treat gastroesophageal reflux disease (GERD), ulcers, certain bacteria in the stomach, inflammation of the esophagus, and Barb-Meza Syndrome. It can also be used to prevent and treat ulcers in patients taking medicines called non-steroidal anti-inflammatory drugs (NSAIDs). How should I use this medicine? Take this medicine by mouth. Swallow the capsules whole with a drink of water. Follow the directions on the prescription label. Do not crush or chew. This medicine works best if taken on an empty stomach 30 to 60 minutes before food. Take your medicine at regular intervals. Do not take more often than directed. If you have difficulty swallowing the capsules, you may open the capsule and sprinkle the contents on a tablespoon of any of the following foods: applesauce, Ensure brand pudding, cottage cheese, yogurt, or strained pears. Do not crush the contents of the capsule into the food. Swallow the dose immediately after preparing it. Do not chew. Follow with a drink of water. Talk to your guest services lead regarding the use of this medicine in children. Special care may be needed. What side effects may I notice from receiving this medicine? Side effects that you should report to your doctor or health long term care social worker as soon as possible: allergic reactions like skin rash, itching or hives, swelling of the face, lips, or tongue bone, muscle or joint pain breathing problems chest pain or chest tightness dark yellow or brown urine diarrhea dizziness fast, irregular heartbeat feeling faint or lightheaded fever or sore throat muscle spasm palpitations redness, blistering, peeling or loosening of the skin, including inside the mouth seizures tremors unusual bleeding or bruising unusually weak or tired yellowing of the eyes or skin Side effects that usually do not require medical attention (Report these to your doctor or health long term care social worker if they continue or are bothersome.): constipation dry mouth headache loose stools nausea What may interact with this medicine? Do not take this medicine with any of the following medications: atazanavir nelfinavir This medicine may also interact with the following medications: ampicillin delavirdine digoxin diuretics iron salts itraconazole, ketoconazole, voriconazole, or other prescription medicines for fungus or yeast infections sucralfate theophylline warfarin What if I miss a dose? If you miss a dose, take it as soon as you can. If it is almost time for your next dose, take only that dose. Do not take double or extra doses. Where should I keep my medicine? Keep out of the reach of children. Store at room temperature between 15 and 30 degrees C (59 and 86 degrees F). Protect from moisture. Throw away any unused medicine after the expiration date. What should I tell my health care provider before I take this medicine? They need to know if you have any of these conditions: liver disease low levels of magnesium in the blood an unusual or allergic reaction to lansoprazole, other medicines, foods, dyes, or preservatives or trying to get breast-feeding What should I watch for while using this medicine? It can take several days before your stomach pain gets better. Check with your doctor or health long term care social worker if your condition does not start to get better, or if it gets worse. Do not treat diarrhea with over the counter products. Contact your doctor if you have diarrhea that lasts more than 2 days or if it is severe and watery. You may need blood work done while you are taking this medicine. Promethazine Hydrochloride Rectal suppository What is this medicine? PROMETHAZINE (proe METH a zeen) is an antihistamine. It is used to treat allergic reactions and to treat or prevent nausea and vomiting from illness or motion sickness. It is also used to make you sleep before surgery, and to help treat pain or nausea after surgery. How should I use this medicine? This medicine is for rectal use only. Do not take by mouth. Wash your hands before and after use. Take off the foil wrapping. Wet the tip of the suppository with cold tap water to make it easier to use. Lie on your side with your lower leg straightened out and your upper leg bent forward toward your stomach. Lift upper buttock to expose the rectal area. Apply gentle pressure to insert the suppository completely into the rectum, pointed end first. Hold buttocks together for a few seconds. Remain lying down for about 15 minutes to avoid having the suppository come out. Do not use more often than directed. Talk to your guest services lead regarding the use of this medicine in children. Special care may be needed. This medicine should not be given to infants and children younger than 2 years old. What side effects may I notice from receiving this medicine? Side effects that you should report to your doctor or health long term care social worker as soon as possible: blurred vision irregular heartbeat, palpitations or chest pain muscle or facial twitches pain or difficulty passing urine seizures skin rash slowed or shallow breathing unusual bleeding or bruising yellowing of the eyes or skin Side effects that usually do not require medical attention (report to your doctor or health long term care social worker if they continue or are bothersome): headache nightmares, agitation, nervousness, excitability, not able to sleep (these are more likely in children) stuffy nose What may interact with this medicine? Do not take this medicine with any of the following medications: medicines called MAO Inhibitors like Nardil, Parnate, Marplan, Eldepryl other phenothiazines like trimethobenzamide This medicine may also interact with the following medications: barbiturates such as phenobarbital bromocriptine certain antidepressants certain antihistamines used in allergy or cold medicines epinephrine levodopa medicines for sleep medicines for mental problems and psychotic disturbances medicines for movement abnormalities as in Parkinson's disease, or for gastrointestinal problems muscle relaxants prescription pain medicines What if I miss a dose? If you miss a dose, use it as soon as you can. If it is almost time for your next dose, use only that dose. Do not use double doses. Where should I keep my medicine? Keep out of the reach of children. Store in a refrigerator between 2 and 8 degrees C (36 and 46 degrees F). Throw away any unused medicine after the expiration date. What should I tell my health care provider before I take this medicine? They need to know if you have any of these conditions: glaucoma high blood pressure or heart disease kidney disease liver disease lung or breathing disease, like asthma prostate trouble pain or difficulty passing urine seizures an unusual or allergic reaction to promethazine or phenothiazines, other medicines, foods, dyes, or preservatives or trying to get breast-feeding What should I watch for while using this medicine? Tell your doctor or health long term care social worker if your symptoms do not start to get better in 1 to 2 days. You may get drowsy or dizzy. Do not drive, use machinery, or do anything that needs mental alertness until you know how this medicine affects you. To reduce the risk of dizzy or fainting spells, do not stand or sit up quickly, especially if you are an older patient. Alcohol may increase dizziness and drowsiness. Avoid alcoholic drinks. Your mouth may get dry. Chewing sugarless gum or sucking hard candy, and drinking plenty of water may help. Contact your doctor if the problem does not go away or is severe. This medicine may cause dry eyes and blurred vision. If you wear contact lenses you may feel some discomfort. Lubricating drops may help. See your eye doctor if the problem does not go away or is severe. This medicine can make you more sensitive to the sun. Keep out of the sun. If you cannot avoid being in the sun, wear protective clothing and use sunscreen. Do not use sun lamps or tanning beds/booths. If you are diabetic, check your blood-sugar levels regularly. You have been given the following additional information: Vomiting (6Y-Adult) Abdominal Pain, Unknown Cause, (Female) Diet, [place] (Adult) Smoking Cessation Hydrocodone Bitartrate, Acetaminophen Oral tablet Ondansetron Oral disintegrating tablet Lansoprazole Oral capsule, gastro-resistant sprinkles Promethazine Hydrochloride Rectal suppository Do not work for three days. (Electronically signed by Dharmesh Lamb DO 09/19/2016 23:09)
--- NOTE | 2016-09-19 23:09 | ED MAR SUMMARY ---
..... Medication Administration Record [facility] [address] [place] [address] Patient: JAXON RODRIGUEZ Visit ID: [id number] 41y, F Weight: 56.6 kg Height/Length: 64 in BMI: 21.4 ALLERGIES: Cyclobenzaprine, Reglan Given 08:09/19/2016 Sanchez Farley R.N. Medication Administered: ZOFRAN [IVP] (ONDANSETRON HCL), Dose: 4 mg IVP over 2 minute(s), Site: #1 right hand. Medication Ordered: Zofran IV 4 mg (NOW). Start 08:09/19/2016 Sanchez Farley R.N., Stop 10:15 09/19/2016 Snachez Farley R.N. Medication Administered: IV NS (SALINE), Dose: IV Fluids over 1 hour(s), Rate: 1000 mL/hr, Dispensed: 1000 mL bag, Site: #1 right hand. Medication Ordered: IV NS : initial bolus none -, then 1000 mL/hr for X2 (NOW). Given 08:09/19/2016 Sanchez Farley R.N. Medication Administered: BENADRYL [IVP] (DIPHENHYDRAMINE HCL), Dose: 25 mg IVP over 3 minute(s), Site: #1 right hand. Medication Ordered: Benadryl IV 25 mg (NOW). Given 08:09/19/2016 Sanchez Farley R.N. Medication Administered: HALDOL [IVP] (HALOPERIDOL LACTATE), Dose: 4 mg IVP over 2 minute(s), Site: #1 right hand. Medication Ordered: Haldol IV 4 mg (NOW). Start 10:05 09/19/2016 Sanchez Farley R.N., Stop 11:35 09/19/2016 Sanchez Farley R.N. Medication Administered: IV NS (SALINE), Dose: IV Fluids over 1 hour(s), Rate: 1000 mL/hr, Dispensed: 1000 mL bag, Site: #1 right hand. Medication Ordered: IV NS : initial bolus none -, then 1000 mL/hr for X2 (NOW). Given 10:07 09/19/2016 Sanchez Farley R.N. Medication Administered: ZOFRAN [IVP] (ONDANSETRON HCL), Dose: 4 mg IVP over 2 minute(s), Site: #1 right hand. Medication Ordered: Zofran IV 4 mg (NOW). Given 10:09/19/2016 Sanchez Farley R.N. Medication Administered: PHENERGAN [IVP] (PROMETHAZINE HCL), Dose: 12.5 mg IVP over 3 minute(s), Site: #1 right hand. Medication Ordered: Phenergan IV 12.5 mg (NOW). Given 10:09/19/2016 Sanchez Farley R.N. Medication Administered: PROTONIX [IVP] (PANTOPRAZOLE SODIUM), Dose: 40 mg IVP over 4 minute(s), Site: #1 right hand. Medication Ordered: Protonix IVP 40mg 40 mg (Mix in NS 10ml over 2min). Given 10:09/19/2016 Sanchez Farley R.N. Medication Administered: DILAUDID [IVP] (HYDROMORPHONE HCL PF), Dose: 1 mg IVP over 2 minute(s), Site: #1 right hand. Medication Ordered: Dilaudid IV 1 mg (HIGH ALERT MEDICATION, NOW). Given 10:09/19/2016 Sanchez Farley R.N. Medication Administered: BENADRYL [IVP] (DIPHENHYDRAMINE HCL), Dose: 25 mg IVP over 2 minute(s), Site: #1 right hand. Medication Ordered: Benadryl IV 25 mg (NOW).
--- NOTE | 2016-09-19 23:09 | ED MED RECONCILIATION SUMMARY ---
Patient: JAXON RODRIGUEZ Medication Reconciliation Report [facility] VisitID: [id number] [address] [place] [address] 41y, F Registration Date/Time: 09/19/2016 Weight: 56.6 kg Height/Length: 64 in. BMI: 21.4 ALLERGIES: Cyclobenzaprine, Reglan The patient's Home Medications are listed below: CONTINUE TAKING THE FOLLOWING MEDICATIONS: Amitriptyline HCl Oral 125 mg, at bedtime The source(s) of the original Home Medication information: patient The following Medications were given to the patient in the Emergency Department: IV NS IV Fluids bolus 0, then 1000 mL/hr, administered: 09/19/2016 8:20:00 AM Zofran [IVP] IVP 4 mg, administered: 09/19/2016 8:20:00 AM Benadryl [IVP] IVP 25 mg, administered: 09/19/2016 8:42:00 AM HALDOL [IVP] IVP 4 mg, administered: 09/19/2016 8:42:00 AM Zofran [IVP] IVP 4 mg, administered: 09/19/2016 10:07:00 AM PHENERGAN [IVP] IVP 12.5 mg, administered: 09/19/2016 10:07:00 AM PROTONIX [IVP] IVP 40 mg, administered: 09/19/2016 10:08:00 AM IV NS IV Fluids bolus 0, then 1000 mL/hr, administered: 09/19/2016 10:05:00 AM Dilaudid [IVP] IVP 1 mg, administered: 09/19/2016 10:51:00 AM Benadryl [IVP] IVP 25 mg, administered: 09/19/2016 10:52:00 AM The following Medications were prescribed to the patient: Take acetaminophen (Tylenol, Datril, etc.) according to label instructions. Available over the counter. -- Dharmesh Lamb DO Hydrocodone/APAP 5mg / 325mg: take 1-2 orally every 8 hours as needed for pain. Dispense fifteen (15). No refill. -- Dharmesh Lamb DO Zofran (orally disintegrating tablets) 4 mg: take 1-2 orally every 8 hours as needed for nausea and vomiting. Dispense fifteen (15). No refill. Substitution is permissible. -- Dharmesh Lamb DO Prevacid 30 mg capsules: Take 1 capsule orally once daily. Dispense fifteen (15). No refills. Substitution is permissible. -- Dharmesh Lamb DO Phenergan suppositories 25 mg: Insert 1 rectally every 4 to 6 hours as needed for nausea or vomiting. Dispense ten (10). No refills. Substitution is permissible. -- Dharmesh Lamb DO
--- NOTE | 2016-09-19 23:09 | ED MAR SUMMARY ---
..... Medication Administration Record [facility] [address] [place] [address] Patient: JAXON RODRIGUEZ Visit ID: [id number] 41y, F Weight: 56.6 kg Height/Length: 64 in BMI: 21.4 ALLERGIES: Cyclobenzaprine, Reglan Given 08:09/19/2016 Sanchez Farley R.N. Medication Administered: ZOFRAN [IVP] (ONDANSETRON HCL), Dose: 4 mg IVP over 2 minute(s), Site: #1 right hand. Medication Ordered: Zofran IV 4 mg (NOW). Start 08:09/19/2016 Sanchez Farley R.N., Stop 10:15 09/19/2016 Sanchez Farley R.N. Medication Administered: IV NS (SALINE), Dose: IV Fluids over 1 hour(s), Rate: 1000 mL/hr, Dispensed: 1000 mL bag, Site: #1 right hand. Medication Ordered: IV NS : initial bolus none -, then 1000 mL/hr for X2 (NOW). Given 08:09/19/2016 Sanchez Farley R.N. Medication Administered: BENADRYL [IVP] (DIPHENHYDRAMINE HCL), Dose: 25 mg IVP over 3 minute(s), Site: #1 right hand. Medication Ordered: Benadryl IV 25 mg (NOW). Given 08:09/19/2016 Sanchez Farley R.N. Medication Administered: HALDOL [IVP] (HALOPERIDOL LACTATE), Dose: 4 mg IVP over 2 minute(s), Site: #1 right hand. Medication Ordered: Haldol IV 4 mg (NOW). Start 10:05 09/19/2016 Sanchez Farley R.N., Stop 11:35 09/19/2016 Sanchez Farley R.N. Medication Administered: IV NS (SALINE), Dose: IV Fluids over 1 hour(s), Rate: 1000 mL/hr, Dispensed: 1000 mL bag, Site: #1 right hand. Medication Ordered: IV NS : initial bolus none -, then 1000 mL/hr for X2 (NOW). Given 10:07 09/19/2016 Sanchez Farley R.N. Medication Administered: ZOFRAN [IVP] (ONDANSETRON HCL), Dose: 4 mg IVP over 2 minute(s), Site: #1 right hand. Medication Ordered: Zofran IV 4 mg (NOW). Given 10:09/19/2016 Sanchez Farley R.N. Medication Administered: PHENERGAN [IVP] (PROMETHAZINE HCL), Dose: 12.5 mg IVP over 3 minute(s), Site: #1 right hand. Medication Ordered: Phenergan IV 12.5 mg (NOW). Given 10:09/19/2016 Sanchez Farley R.N. Medication Administered: PROTONIX [IVP] (PANTOPRAZOLE SODIUM), Dose: 40 mg IVP over 4 minute(s), Site: #1 right hand. Medication Ordered: Protonix IVP 40mg 40 mg (Mix in NS 10ml over 2min). Given 10:09/19/2016 Sanchez Farley R.N. Medication Administered: DILAUDID [IVP] (HYDROMORPHONE HCL PF), Dose: 1 mg IVP over 2 minute(s), Site: #1 right hand. Medication Ordered: Dilaudid IV 1 mg (HIGH ALERT MEDICATION, NOW). Given 10:09/19/2016 Sanchez Farley R.N. Medication Administered: BENADRYL [IVP] (DIPHENHYDRAMINE HCL), Dose: 25 mg IVP over 2 minute(s), Site: #1 right hand. Medication Ordered: Benadryl IV 25 mg (NOW).
== END 2016-09-19 11:39 | disposition home or self-care (01) ==
LOC: ED SRH 07:55
DX: R11.2 Nausea with vomiting, unspecified (principal); R10.84 Generalized abdominal pain; R10.13 Epigastric pain; F17.210 Nicotine dependence, cigarettes, uncomplicated; Z88.8 Allergy status to other drugs, medicaments and biological substances
CPT/HCPCS: 90004; 90074; 90100; 91400; 92235; 92530; 92760; 92761; 92762; 92763; 92764; 92765; 92766; 92767; 93070; 95059